=== PATIENT | male | born 1925 | race Caucasian/White ===

== ENCOUNTER 2016-04-20 05:28 | Emergency (ER) | payer MEDICARE, BC ==
[2016-04-20] MEDS ORDERED: Furosemide 40 MG/4 ML VIAL ONE (06:11)
[2016-04-20 06:45] VITALS: RESP 22
[2016-04-20] MEDS ORDERED: DUONEB INH ONE (06:51)
[2016-04-20] MEDS ORDERED: SODIUM CHLORIDE 0.9% 250 ML IV ONE (06:56)
[2016-04-20] MEDS ORDERED: CEFTRIAXONE 1 GM VIAL ONE (08:05)
[2016-04-20] MEDS ORDERED: SODIUM CHLORIDE 0.9% 100 ML IV ONE (08:06)
[2016-04-20] MEDS ORDERED: AZITHROMYCIN 500 MG VIAL IV ONE (09:06)
[2016-04-20] MEDS ORDERED: DEXTROSE 5% AVIVA 250 ML IV ONE (09:06)
[2016-04-20] MEDS ORDERED: ENOXAPARIN 80 MG/0.8 ML SYR SUBQ ONE (10:48)
[2016-04-20 11:34] VITALS: RESP 22
== END 2016-04-20 18:30 | disposition other institution (70) ==
LOC: ER 05:28
CPT/HCPCS: 36415 ×2; 36600 ×2; 71010 ×2; 80053 ×2; 82550 ×2; 82553 ×2; 82803 ×2; 83605 ×2; 83735 ×2; 83880 ×2; 84484 ×2; 85025 ×2; 85610 ×2; 85730 ×2; 87040 ×2; 93005 ×2; 94640 ×2; 94660 ×2; 94799; 96361; 96365; 96367; 96372; 96375; J0696; J7050